=== PATIENT | male | born 1985 | race African-American/Black ===

== ENCOUNTER 2018-12-11 11:22 | Emergency (ER) | payer OTHER ==
[~2018-12-11] VITALS: Ht 167.6 cm; Wt 79.4 kg
[2018-12-11 11:36] VITALS: BP 100/68
--- NOTE | 2018-12-11 11:48 | PHYS DOC ---
Past Medical History Past Medical History: Asthma Past Surgical History: No Surgical History Alcohol Use: None Drug Use: Marijuana Adult General Chief Complaint Chief Complaint: THUMB HPI HPI Patient is a 32 year old male who presents with right thumb pain. The patient states that he was at [employer] around 30 mins prior to arrival was touching obese a wooden started having right thumb pain. The patient rates his pain as 6 out of 10 in severity, is not taking medicine for the pain. Rates the pain as sharp. Review of Systems Review of Systems Constitutional: Denies fever or chills [] Eyes: Denies change in visual acuity, redness, or eye pain [] HENT: Denies nasal congestion or sore throat [] Respiratory: Denies cough or shortness of breath [] Cardiovascular: No additional information not addressed in HPI [] GI: Denies abdominal pain, nausea, vomiting, bloody stools or diarrhea [] : Denies dysuria or hematuria [] Musculoskeletal: Denies back pain but has R thumb pain. Integument: Denies rash or skin lesions. Neurologic: Denies headache, focal weakness or sensory changes [] Endocrine: Denies polyuria or polydipsia [] Complete systems were reviewed and found to be within normal limits, except as documented in this note. Current Medications Current Medications Current Medications Medications (Trade) Dose Ordered Sig/Jessica Start Time Stop Time Status Last Admin Dose Admin Lidocaine HCl 20 ml 1X ONCE 12/11/18 12:15 12/11/18 12:16 DC 12/11/18 11:55 20 ML Allergies Allergies Allergies Coded Allergies Type Severity Reaction Last Updated Verified No Known Drug Allergies 12/11/18 No Physical Exam Physical Exam Constitutional: Well developed, well nourished, no acute distress, non-toxic appearance. [] HENT: Normocephalic, atraumatic, bilateral external ears normal, oropharynx moist, no oral exudates, nose normal. [] Eyes: PERRLA, EOMI, conjunctiva normal, no discharge. [] Neck: Normal range of motion, no tenderness, supple, no stridor. [] Cardiovascular:Heart rate regular rhythm, no murmur [] Lungs & Thorax: Bilateral breath sounds clear to auscultation [] Abdomen: Bowel sounds normal, soft, no tenderness, no masses, no pulsatile masses. [] Skin: Warm, dry, no erythema, no rash. [] Back: No tenderness, no CVA tenderness. [] Extremities: Tenderness to R thumb, can feel foreign body beneath skin. Neurologic: Alert and oriented X 3, normal motor function, normal sensory function, no focal deficits noted. [] Psychologic: Affect normal, judgement normal, mood normal. [] Current Patient Data Vital Signs Vital Signs Date Time Temp Pulse Resp B/P (MAP) Pulse Ox O2 Delivery O2 Flow Rate FiO2 12/11/18 11:36 98.7 52 16 100/68 (79) 97 Room Air 98.7 EKG EKG [] Radiology/Procedures Radiology/Procedures Injected 3 mL of 2% lidocaine in R thumb to perform digital block. Attempted to force splinter out of skin. Unable to do so. Course & Med Decision Making Course & Med Decision Making Pertinent Labs and Imaging studies reviewed. (See chart for details) Will perform a digital block, and attempt to remove the splinter. Performed digital block, unable to remove splinter discussed with patient. Will try the observe and wait and see if the bodies immune system goes closer to surface as he did not want me to make a cut to try to retrieve it. Patient is agreeable. Dragon Disclaimer Dragon Disclaimer This electronic medical record was generated, in whole or in part, using a voice recognition dictation system. Departure Departure Impression: Primary Impression: Splinter in skin Disposition: 01 HOME, SELF-CARE Condition: STABLE Patient Instructions: Wood Splinters Additional Instructions: Thank you for visiting [facility]. We appreciate you trusting us with your care. If any additional problems come up don't hesitate to return to visit us. Please follow up with your primary care provider so they can plan additional care if needed and know about the problem that you had. If symptoms worsen come back to the Emergency Department. Any concerning symptoms that start such as chest pain, shortness of air, weakness or numbness on one side of the body, running high fevers or any other concerning symptoms return to the ER. EH RICHARDSON APRN Dec 11, 2018 11:48
[2018-12-11] MEDS ORDERED: LIDOCAINE 2% 20 ML VIAL. IJ ONE (12:15)
== END 2018-12-11 13:17 | disposition home or self-care (01) ==
LOC: ER 11:22
DX: S60.351A Superficial foreign body of right thumb, initial encounter (principal); J45.909 Unspecified asthma, uncomplicated; W45.8XXA Other foreign body or object entering through skin, initial encounter; Y93.89 Activity, other specified; Y92.89 Other specified places as the place of occurrence of the external cause; Y99.8 Other external cause status
CPT/HCPCS: 64450; 99284; J2001